=== PATIENT | male | born 1945 | race African-American/Black ===

== ENCOUNTER 2018-04-07 08:00 | Inpatient (IN) | payer OTHER ==
[~2018-04-07 08:00] MED LIST: PERCOCET 5/321 UDTAB PO
[2018-04-07] MEDS ORDERED: HUMULIN N100 UNIT/2 (10:54)
== END 2018-04-17 14:51 | DRG 470 ==
LOC: O/R 04-13 06:33 → SURH 04-13 06:33
PROVIDERS: Orthopaedic Surgery
PROC: 0SRC0J9 Replacement of Right Knee Joint with Synthetic Substitute, Cemented, Open Approach (ICD-10-PCS; principal; 2018-04-13 13:30)
DX: M17.11 Unilateral primary osteoarthritis, right knee (principal); D62 Acute posthemorrhagic anemia; E11.9 Type 2 diabetes mellitus without complications; Z79.4 Long term (current) use of insulin; Z85.038 Personal history of other malignant neoplasm of large intestine; B18.2 Chronic viral hepatitis C

== ENCOUNTER 2018-09-03 10:06 | Outpatient (CLI) | payer OTHER ==
[~2018-09-03 10:06] MED LIST changes: +HUMULIN N100 UNIT/2
== END 2018-09-03 10:10 | disposition home or self-care (01) ==
LOC: SONOGRAMA 10:06
DX: M25.561 Pain in right knee (principal); M25.562 Pain in left knee; M25.552 Pain in left hip; M25.551 Pain in right hip; M54.5 Low back pain; M25.511 Pain in right shoulder; M25.512 Pain in left shoulder

== ENCOUNTER 2019-05-02 10:23 | Outpatient (CLI) | payer OTHER | END 2019-05-02 10:29 | disposition home or self-care (01) | LOC: LAB 10:23 | DX: R97.20 Elevated prostate specific antigen [PSA] (principal) ==

== ENCOUNTER 2019-05-13 07:19 | Outpatient (CLI) | payer OTHER | END 2019-05-13 07:21 | disposition home or self-care (01) | LOC: SONOGRAMA 07:19 | DX: R97.20 Elevated prostate specific antigen [PSA] (principal) ==

== ENCOUNTER 2019-06-13 07:14 | Outpatient (CLI) | payer OTHER | END 2019-06-13 07:24 | disposition home or self-care (01) | LOC: NUCLEAR 07:14 | DX: C61 Malignant neoplasm of prostate (principal) | CPT/HCPCS: 78803; A9503 ==

== ENCOUNTER → 2021-01-21 | Outpatient (CLI) | payer OTHER | END | disposition home or self-care (01) | LOC: PPH VACUNA 15:00 | DX: Z23 Encounter for immunization (principal) ==

== ENCOUNTER 2021-08-30 08:00 | Outpatient (CLI) | payer OTHER | END 2021-08-30 08:30 | disposition home or self-care (01) | LOC: PPH VACUNA 08:00 | PROVIDERS: ATTEND Emergency Medicine Pediatric Emergency Medicine | DX: Z23 Encounter for immunization (principal) ==

== ENCOUNTER 2021-11-19 07:13 | Outpatient (CLI) | payer OTHER | END 2021-11-19 07:16 | disposition home or self-care (01) | LOC: RAD 07:13 | PROVIDERS: ATTEND Internal Medicine Rheumatology | DX: C90.00 Multiple myeloma not having achieved remission (principal) ==

== ENCOUNTER 2021-11-22 07:12 | Outpatient (CLI) | payer OTHER | END 2021-11-22 07:13 | disposition home or self-care (01) | LOC: NUCLEAR 07:12 | PROVIDERS: ATTEND Internal Medicine Rheumatology | DX: M06.4 Inflammatory polyarthropathy (principal) | CPT/HCPCS: 78315; A9503 ==

== ENCOUNTER 2022-04-22 07:42 | Outpatient (CLI) | payer OTHER | END 2022-04-22 08:00 | disposition home or self-care (01) | LOC: PPH VACUNA 07:42 | PROVIDERS: ATTEND Emergency Medicine Pediatric Emergency Medicine | DX: Z23 Encounter for immunization (principal) ==

== ENCOUNTER 2023-06-25 07:08 | Outpatient (CLI) | payer OTHER | END 2023-06-25 07:14 | disposition home or self-care (01) | LOC: RAD 07:08 | PROVIDERS: ATTEND Internal Medicine Hematology & Oncology | DX: M25.552 Pain in left hip (principal); J41.0 Simple chronic bronchitis; I70.0 Atherosclerosis of aorta; J44.9 Chronic obstructive pulmonary disease, unspecified ==